=== PATIENT | female | born 1980 | race Caucasian/White ===

== ENCOUNTER 2022-02-12 22:04 | Emergency (ER) | payer MEDICAID ==
[~2022-02-12] VITALS: Ht 154.9 cm; Wt 72.6 kg
--- NOTE | 2022-02-12 22:10 | NUR ---
Patient walked into ER with steady gait. NAD noted. A/O x4.
--- NOTE | 2022-02-12 22:25 | NUR ---
Dr. Mcghee at bedside. MSE in progress.
[2022-02-12] MEDS ORDERED: CEFTRIAXONE 1 G in IV DEXTROSE 5% 50 ML IV ONE (22:30)
[2022-02-12] MEDS ORDERED: IV NS 1000 ML 1,000 ML IV ONE (22:30)
--- NOTE | 2022-02-12 22:31 | NUR ---
Wil Gonzalez) at bedside.
[2022-02-12 22:44] LABS: *BILIRUBIN,URIN NEGATIVE (NEGATIVE); *CLARITY,URINE CLEAR (CLEAR); *COLOR,URINE YELLOW (YELLOW); *KETONES,URINE NEGATIVE (NEGATIVE); *UROBILINOGEN,URINE 0.2 E.U./dl (NORMAL); NITRITE, URINE NEGATIVE (NEGATIVE); PH,URINE 6.5 (5.0-8.0); UGLUCOSE NEGATIVE (NEGATIVE)
[2022-02-12] MEDS ORDERED: CEFTRIAXONE /D5W 50ML IVPB **ER PYXIS IV ONE (22:46)
[2022-02-12 22:49] LABS: HEMATOCRIT 36.2 % (31.2-41.9); MEAN CORPUSCULAR HEMOGLOBIN 29.8 uug (24.7-32.8); MEAN CORPUSCULAR VOLUME 88.1 fL (75.5-95.3); PLATELET COUNT (AUTO) 276 K/uL (179-408)
[2022-02-12 23:00] LABS: CREATININE 0.7 mg/dL (0.6-1.3); POTASSIUM 3.6 mmol/L (3.5-5.1)
[2022-02-12 23:06] LABS: *BLOOD, URINE 1+ (NEGATIVE); LEUKOCYTE ESTERASE ,URINE 1+ (NEGATIVE)
[2022-02-12 23:07] LABS: BACTERIA,URINE R /HPF (NONE SEEN); SQUAMOUS EPITHELIAL CELL,UR FEW /HPF (NONE SEEN)
[2022-02-13] MEDS ORDERED: OXYC-128 PO (00:05)
[2022-02-13] MEDS ORDERED: CIPR-262 PO (00:05)
[2022-02-13] MEDS ORDERED: SULF1TAB48 PO (00:07)
[2022-02-13] MEDS ORDERED: GENTAMICIN SULFATE 20 MG/2 ML VIAL IV ONE ×2 (00:13)
[2022-02-13] MEDS ORDERED: GENTAMICIN SULFATE 80 MG/2 ML VIAL ONE (00:14)
--- NOTE | 2022-02-13 00:30 | NUR ---
Patient discharged to home in stable condition tisigifredo stevensfriend. A/O x4. NAD noed. Ambulatory with steady gait. Written and verbal after care instructions given. Patient verbalizes understanding of instructions. Stressed follow up or return to ER for worsening s/s.
[2022-02-13 00:38] VITALS: BP 103/65
== END 2022-02-13 00:30 | disposition home or self-care (01) ==
LOC: ER 22:04
DX: N12 Tubulo-interstitial nephritis, not specified as acute or chronic (principal)
CPT/HCPCS: 99284; 96365; 76770; 80048; 81001; 85025; 87040; 87086; 36415; J0696; J7040; A4663; J1580